=== PATIENT | female | born 1970 | race Caucasian/White ===

== ENCOUNTER 2025-07-21 06:32 | Outpatient (CLI) | payer BC ==
[2025-07-21] MEDS ORDERED: iohexol 300 MG/1 ML 50ml polymer ONE (06:34)
[2025-07-21] MEDS ORDERED: LIDOcaine 1%/PF 5ML 10 MG/ML VIAL ONE (06:34)
[2025-07-21] MEDS ORDERED: LIDOcaine 1% 30ml preserv. free vial ONE (06:35)
[2025-07-21] MEDS ORDERED: GADOTERATE MEGLUMINE 7.5 MMOL/15 ML VIAL IV ONE (06:35)
--- NOTE | 2025-07-21 09:55 | RADIOLOGY REPORT ---
C-ARM FLUOROSCOPY: PROCEDURE: Left hip MRI arthrogram FLUOROSCOPY TIME: 0.1 Air Kerma: 1 mgy FINDINGS: Spot intraoperative C arm radiographs demonstrating left hip MRI arthrogram. IMPRESSION: Please refer to surgical report for detailed findings.
--- NOTE | 2025-07-21 10:15 | RADIOLOGY REPORT ---
CLINICAL INDICATION: Left hip pain COMPARISON: None TECHNIQUE: Multiplanar, multi-sequence MRI of the left hip was performed after the intra-articular administration of a dilute gadolinium solution. The contralateral hip is included on several sequences. Contrast: None INTERPRETATION: Joint space: The joint is appropriately distended with intra-articular contrast. Bones and articular cartilage: There is no fracture, bone marrow edema or avascular necrosis. The alignment is normal. There is no focal articular cartilage defect. Tendons and and bursae: There is no tendon abnormality. There is no evidence of bursitis. Acetabular labrum: There is a small tear of the anterior superior labrum. The labrum is otherwise intact. IMPRESSION: 1. Nondisplaced tear of the anterior superior left acetabular labrum.
== END 2025-07-21 23:59 | disposition home or self-care (01) ==
LOC: MRI 06:32
PROVIDERS: ATTEND Family Medicine Sports Medicine
DX: S73.192A Other sprain of left hip, initial encounter (principal); M47.26 Other spondylosis with radiculopathy, lumbar region; M70.62 Trochanteric bursitis, left hip; M77.9 Enthesopathy, unspecified; M25.552 Pain in left hip; M54.50 Low back pain, unspecified; I10 Essential (primary) hypertension; G43.909 Migraine, unspecified, not intractable, without status migrainosus; M19.90 Unspecified osteoarthritis, unspecified site; Z79.890 Hormone replacement therapy; Z79.899 Other long term (current) drug therapy; Z88.2 Allergy status to sulfonamides; Z88.8 Allergy status to other drugs, medicaments and biological substances; X58.XXXA Exposure to other specified factors, initial encounter; Y93.89 Activity, other specified; Y92.89 Other specified places as the place of occurrence of the external cause; Y99.8 Other external cause status
CPT/HCPCS: 27093; 73722; 77002; A9575; J2003; J3490; Q9967